=== PATIENT | female | born 1960 | race Hispanic/Latino ===

== ENCOUNTER 2019-06-05 11:36 | Inpatient (IN) | payer OTHER ==
[~2019-06-05 11:36] MED LIST: BOTOX ID ONE; NACL 0.9% 0 ML ONE; NACL P/F VIAL (10 ML) INFILTRATI ONE
[2019-06-05] MEDS ORDERED: NACL 0.9% 1000 ML 1,000 ML IV SCH (12:08)
[2019-06-05] MEDS ORDERED: ZOFRAN ONE (12:28)
[2019-06-05] MEDS ORDERED: DIPRIVAN 10 MG/ML IV ONE (12:28)
[2019-06-05] MEDS ORDERED: DECADRON ONE (12:28)
[2019-06-05] MEDS ORDERED: SUBLIMAZE ONE (12:33)
--- NOTE | 2019-06-05 12:57 | Anesthesia Consultation ---
Anesthesia Consult and Med Hx Date of service: 06/05/19 - Airway Anesthetic Teeth Evaluation: Good ROM Head & Neck: Adequate Mental/Hyoid Distance: Adequate Mallampati Class: Class II Intubation Access Assessment: Good - Pulmonary Exam CTA: Yes - Cardiac Exam Cardiac Exam: RRR - Pre-Operative Health Status ASA Pre-Surgery Classification: ASA3 Proposed Anesthetic Plan: General (COPD on home O2, DM , HTN , SMOKER for GA) - Pulmonary Hx Smoking: Yes (1 PPD X 40 YRS) Hx Asthma: Yes COPD: Yes (DAILY INHALERS) Hx Sleep Apnea: Yes (DX SLEEP APNEA , NO CPAP) - Cardiovascular System Hx Hypertension: Yes (NO MEDS) - Other Systems Hx Cancer: No
--- NOTE | 2019-06-05 12:58 | Anesthesia Day of Surgery ---
Anesthesia Day of Surgery - Day of Surgery Patient Examined: Yes Patient H&P Reviewed: Yes Patient is NPO: Yes
[2019-06-05] MEDS ORDERED: DUONEB *Not for PRN Use IH SCH (13:00)
[2019-06-05] MEDS ORDERED: DUONEB *Not for PRN Use IH ONE ×2 (13:05→16:51)
[2019-06-05] MEDS ORDERED: ANCEF/STERILE WATER 2 GM/20 ML IV NR (13:18)
[2019-06-05] MEDS ORDERED: NACL P/F VIAL (10 ML) 10 ML ONE (13:24)
[2019-06-05] MEDS ORDERED: OMNIPAQUE (300 MG) IR ONE ×2 (13:55→14:00)
[2019-06-05] MEDS ORDERED: NACL P/F VIAL (10 ML) INFILTRATI ONE (14:00)
[2019-06-05] MEDS ORDERED: BOTOX ID ONE (14:00)
[2019-06-05] MEDS ORDERED: BOTOX ONE (14:00)
--- NOTE | 2019-06-05 14:21 | Short Stay Summary ---
Short Stay Documentation Date of service: 06/05/19 - History H&P: obtained from office - Allergies and Medications Current Medications: Allergies codeine Allergy (Verified 04/12/19 15:40) Rash Home Medications Medication Instructions Recorded Confirmed Last Taken Type ALBUTEROL Inhaler (OR & NICU) 2 puff IH QID PRN 04/12/19 05/29/19 06/05/19 07:00 History [Proair] ALPRAZolam [Xanax TAB] 1 mg PO TID 04/12/19 05/29/19 06/05/19 07:00 History ARIPiprazole [Abilify TAB] 5 mg PO DAILY 04/12/19 05/29/19 06/05/19 07:00 History Duloxetine HCl [Cymbalta] 60 mg PO DAILY 04/12/19 05/29/19 06/05/19 07:00 History Fenofibrate Nanocrystallized 160 mg PO DAILY 04/12/19 05/29/19 06/05/19 07:00 History [Fenofibrate] Ibuprofen [Motrin] 600 mg PO Q8H PRN 04/12/19 06/05/19 05/29/19 History Omeprazole 20 mg PO DAILY 04/12/19 05/29/19 06/05/19 07:00 History Umeclidinium Brm/Vilanterol Tr 1 each IH DAILY 04/12/19 05/29/19 06/05/19 07:00 History [Anoro Ellipta 62.5-25 Mcg INH] Zolpidem [Ambien] 10 mg PO QHS 04/12/19 05/29/19 06/05/19 07:00 History metFORMIN [Glucophage] 500 mg PO BID 04/12/19 06/05/19 06/04/19 History Active Medications Albuterol/Ipratropium (Duoneb *Not For Prn Use*) 1 ampul IH ONCE CEDRIC Stop: 06/05/19 15:00 Last Admin: 06/05/19 13:05 Dose: 1 ampul Documented by: Cefazolin Sodium (Ancef/Sterile Water 2 Gm/20 Ml) 2 gm IV PREOP NR Stop: 06/05/19 23:59 Sodium Chloride (Nacl 0.9% 1000 Ml) 1,000 mls @ 100 mls/hr IV DIRECT CEDRIC Stop: 06/05/19 23:59 Last Admin: 06/05/19 12:40 Dose: 100 mls/hr Documented by: - Brief post op/procedure progress note Date of procedure: 06/05/19 Pre-op diagnosis: OAB/UUI Procedure: cysto, linda rpg, bladder botox 100 units Anesthesia: GETA Findings: no tumors, nl rpg, no erythema, no trabec; bladder nl; no palp ureth mass Surgeon: MARIA VICTORIA MANZANO Estimated blood loss: minimal Pathology: none Condition: stable - Hospital course Hospital course: or pacu home - Disposition Condition at discharge: Good Disposition: DC-01 TO HOME OR SELFCARE Short Stay Discharge Plan Activity: advance as tolerated Diet: advance as tolerated Follow up with: MARIA VICTORIA MANZANO MD [Staff Physician] - 7 Days
--- NOTE | 2019-06-05 14:48 | Fluoroscopy Report ---
Fluoroscopy retrograde urography HISTORY: Urinary incontinence FINDINGS: 40 seconds of fluoroscopy was provided by radiology during retrograde urography by the urol ogist. 7 fluoroscopic images of the abdomen are presented. The renal collecting systems are within no rmal limits bilaterally. No evidence for filling defect or abnormal dilatation. Bladder Botox injecti on was performed per the procedural notes. IMPRESSION: Unremarkable bilateral retrograde pyelograms. Signer Name: Ronak Maciel Jr, MD Signed: 06/05/2019 2:43 PM Workstation Name: [id number]
--- NOTE | 2019-06-05 16:13 | Post Anesthesia Evaluation ---
- Post Anesthesia Evaluation Patient Participated: Yes Airway Patent: Yes Stable Respiratory Function: Yes Nausea/Vomiting: No Temp > 96.8F: Yes Pain Manageable: Yes Adequeate Hydration: Yes Anesthesia Complications: No Block Receding Appropriately: Not Applicable Patient on Ventilator: No
[2019-06-05] MEDS ORDERED: SODIUM CHLORIDE FLUSH SYRINGE 10 ML IV PRN (17:43)
--- NOTE | 2019-06-05 17:46 | History and Physical Report ---
History of Present Illness Chief complaint: She cant breathe History of present illness: 58 YO Female with Obesity, COPD, Nicotine Dependence, DM, HTN admitted directly from PACU. Pt seen and evaluated in PACU and found to be lethargic as well as Acute Hypercapnic Respiratory Failure. Pt admitted to IMCU and initiated on NIPPV. No reports of fever, chills, CP, Palpitations, NVD, Trauma, BRBPR, Productive cough, or recent ill contacts. No further history obtainable due to patient mental status. No prior admission for review. All listed medication reconciled at time of admission. Past History Past Medical History: COPD, diabetes, hypertension, other (Obesity Hypoventilati on) Social history: smoking Family history: hypertension Medications and Allergies Allergies Allergy/AdvReac Type Severity Reaction Status Date / Time codeine Allergy Rash Verified 04/12/19 15:40 Home Medications Medication Instructions Recorded Confirmed Last Taken Type ALBUTEROL Inhaler (OR & NICU) 2 puff IH QID PRN 04/12/19 05/29/19 06/05/19 07:00 History [Proair] ALPRAZolam [Xanax TAB] 1 mg PO TID 04/12/19 05/29/19 06/05/19 07:00 History ARIPiprazole [Abilify TAB] 5 mg PO DAILY 04/12/19 05/29/19 06/05/19 07:00 History Duloxetine HCl [Cymbalta] 60 mg PO DAILY 04/12/19 05/29/19 06/05/19 07:00 History Fenofibrate Nanocrystallized 160 mg PO DAILY 04/12/19 05/29/19 06/05/19 07:00 History [Fenofibrate] Ibuprofen [Motrin] 600 mg PO Q8H PRN 04/12/19 06/05/19 05/29/19 History Omeprazole 20 mg PO DAILY 04/12/19 05/29/19 06/05/19 07:00 History Umeclidinium Brm/Vilanterol Tr 1 each IH DAILY 04/12/19 05/29/19 06/05/19 07:00 History [Anoro Ellipta 62.5-25 Mcg INH] Zolpidem [Ambien] 10 mg PO QHS 04/12/19 05/29/19 06/05/19 07:00 History metFORMIN [Glucophage] 500 mg PO BID 04/12/19 06/05/19 06/04/19 History Ketorolac [Toradol] 10 mg PO Q6H PRN #20 tablet 06/05/19 Unknown Rx cefUROXime [Ceftin] 500 mg PO Q12H #20 tablet 06/05/19 Unknown Rx Active Meds: Active Medications Cefazolin Sodium (Ancef/Sterile Water 2 Gm/20 Ml) 2 gm IV PREOP NR Stop: 06/05/19 23:59 Sodium Chloride (Nacl 0.9% 1000 Ml) 1,000 mls @ 100 mls/hr IV DIRECT CEDRIC Stop: 06/05/19 23:59 Last Admin: 06/05/19 12:40 Dose: 100 mls/hr Documented by: Miscellaneous Medication (Aripiprazole [Abilify Tab]) 5 mg PO DAILY CEDRIC Miscellaneous Medication (Duloxetine Hcl [Cymbalta]) 60 mg PO DAILY CEDRIC Miscellaneous Medication (Fenofibrate Nanocrystallized [Fenofibrate]) 160 mg PO DAILY CEDRIC Miscellaneous Medication (Omeprazole [Omeprazole]) 20 mg PO DAILY CEDRIC Miscellaneous Medication (Umeclidinium Brm/Vilanterol Tr [Anoro Ellipta 62.5-25 Mcg Inh]) 1 each IH DAILY CEDRIC Sodium Chloride (Sodium Chloride Flush Syringe 10 Ml) 10 ml IV BID CEDRIC Sodium Chloride (Sodium Chloride Flush Syringe 10 Ml) 10 ml IV PRN PRN PRN Reason: LINE FLUSH Review of Systems ROS unobtainable: due to mental status Gastrointestinal: no diarrhea, no change in bowel habits Genitourinary Female: no dysmenorrhea, no pelvic pain, no flank pain, no dysuria, no stress incontinence, no post void dribbling Rectal: no pain, no incontinence, no bleeding Musculoskeletal: no neck stiffness, no shooting arm pain, no low back pain Integumentary: no rash, no wounds, no jaundice Neurological: no paralysis, no weakness, no parathesias, no tingling, no migraines, no aphasia, no memory loss Psychiatric: no memory loss, no change in sleep habits, no sleep disturbances, no insomnia, no hypersomnia, no change in libido Endocrine: no cold intolerance, no polyphagia, no polydipsia, no nocturia, no deepening of the voice, no high blood sugars, no low blood sugars Hematologic/Lymphatic: no easy bruising, no easy bleeding, no lymphadenopathy Allergic/Immunologic: no urticaria, no allergic rhinitis, no persistent infections, no angioedema Exam - Constitutional Vitals: Temp Pulse Resp BP Pulse Ox 99.0 F 91 H 20 137/66 95 06/05/19 14:25 06/05/19 15:45 06/05/19 15:45 06/05/19 15:45 06/05/19 15:45 General appearance: Present: mild distress - EENT Eyes: Present: PERRL ENT: hearing intact, clear oral mucosa - Neck Neck: Present: supple, normal ROM - Respiratory Respiratory effort: normal Respiratory: bilateral: CTA - Cardiovascular Heart Sounds: Present: S1 & S2. Absent: rub, click - Extremities Extremities: pulses symmetrical, No edema Peripheral Pulses: within normal limits - Abdominal General gastrointestinal: Present: soft, non-tender, non-distended, normal bowel sounds Female genitourinary: Present: normal - Integumentary Integumentary: Present: clear, warm, dry - Musculoskeletal Musculoskeletal: gait normal, strength equal bilaterally - Psychiatric Psychiatric: appropriate mood/affect, intact judgment & insight - Neurologic Neurologic: CNII-XII intact, moves all extremities Results - Labs CBC & Chem 7: 06/06/19 05:07 06/06/19 05:07 Labs: Abnormal lab results 06/05/19 06/05/19 Range/Units 12:53 14:41 POC Glucose 112 H 118 H (70-105) Assessment and Plan - Patient Problems (1) Respiratory failure Current Visit: Yes Status: Acute Qualifiers: Chronicity: acute Respiratory failure complication: hypercapnia Qualified Code(s): J96.02 - Acute respiratory failure with hypercapnia Plan to address problem: Admit to IMCU, Initiated NIPPV, ABG, Repeat ABG after 1 hour on BIPAP, pulse oximetry, chest x ray. (2) Nicotine dependence Current Visit: Yes Status: Acute Qualifiers: Substance use status: in withdrawal Plan to address problem: supportive care, smoking cessation counseling, supportive care. (3) Obesity hypoventilation syndrome Current Visit: Yes Status: Acute Plan to address problem: NIPPV as clinically indicated, balanced diet, increased physical activity at discharge, pulse oximetry, incentive spirometry, early ambulation, pulmonary toilet (4) Diabetes Current Visit: Yes Status: Acute Plan to address problem: ADA diet, insulin, accu check, hypoglycemia protocol. (5) HTN (hypertension) Current Visit: Yes Status: Acute Qualifiers: Hypertension type: essential hypertension Qualified Code(s): I10 - Essential (primary) hypertension Plan to address problem: monitor bp q shift, continue medical management. (6) DVT prophylaxis Current Visit: Yes Status: Acute Plan to address problem: SCD to BLE while in bed
[2019-06-05 18:55] LABS: Basophils # (Auto) 0.1 K/mm3 (0.0-0.1); Basophils % (Auto) 0.7 % (0.0-1.8); Eosinophils # (Auto) 0.1 K/mm3 (0.0-0.4); Eosinophils % (Auto) 0.7 % (0.0-4.3); Lymphocytes # (Auto) 1.5 K/mm3 (1.2-5.4); Lymphocytes % (Auto) 13.7 % (13.4-35.0); Mean Corpuscular HGB Conc 31 % (30-34); Mean Corpuscular Volume 79 fl (79-97); Monocytes # (Auto) 0.8 K/mm3 (0.0-0.8); Monocytes % (Auto) 7.8 % (0.0-7.3); Platelet Count 267 K/mm3 (140-440); Red Blood Count 5.55 M/mm3 (3.65-5.03); Red Cell Distribution Width 17.3 % (13.2-15.2)
[2019-06-05 18:56] LABS: Hematocrit 43.6 % (30.3-42.9); Hemoglobin 13.5 gm/dl (10.1-14.3)
[2019-06-05 19:37] LABS: Alanine Aminotransferase 23 units/L (7-56); BUN/Creatinine Ratio 16; Blood Urea Nitrogen 13 mg/dL (7-17); Calcium 8.9 mg/dL (8.4-10.2); Hemolysis Index 8
--- NOTE | 2019-06-05 20:16 | XRay Report ---
CHEST 1 VIEW INDICATION: dypsnea. COMPARISON: None FINDINGS: Support devices: None. Heart: Mild cardiomegaly. Lungs/Pleura: No acute air space or interstitial disease. Additional findings: None. IMPRESSION: 1. No acute findings. Signer Name: Joseph Mccullough MD Signed: 06/05/2019 8:12 PM Workstation Name: [id number]
[2019-06-05] MEDS ORDERED: TRICOR PO SCH (22:00)
[2019-06-06] MEDS: SODIUM CHLORIDE FLUSH SYRINGE 10 ML IV SCH ×2 (00:45→09:22)
[2019-06-06 05:48] LABS: Basophils % (Auto) 0.2 % (0.0-1.8); Eosinophils % (Auto) 0.2 % (0.0-4.3); Hemoglobin 12.6 gm/dl (10.1-14.3); Lymphocytes # (Auto) 1.1 K/mm3 (1.2-5.4); Lymphocytes % (Auto) 12.9 % (13.4-35.0); Mean Corpuscular HGB Conc 32 % (30-34); Mean Corpuscular Volume 79 fl (79-97); Monocytes # (Auto) 0.5 K/mm3 (0.0-0.8); Monocytes % (Auto) 5.8 % (0.0-7.3); Platelet Count 240 K/mm3 (140-440); Red Blood Count 5.09 M/mm3 (3.65-5.03); Red Cell Distribution Width 17.3 % (13.2-15.2)
[2019-06-06 06:19] LABS: Alanine Aminotransferase 19 units/L (7-56); Albumin 3.6 g/dL (3.9-5); BUN/Creatinine Ratio 20; Blood Urea Nitrogen 12 mg/dL (7-17); Calcium 8.7 mg/dL (8.4-10.2); Hemolysis Index 1
[2019-06-06] MEDS ORDERED: PROTONIX PO SCH (10:00)
[2019-06-06] MEDS ORDERED: CYMBALTA PO SCH (10:00)
[2019-06-06] MEDS ORDERED: NON-FORMULARY (Duloxetine Hcl [Cymbalta] 60 MG) PO SCH (10:00)
[2019-06-06] MEDS ORDERED: FENOFIBRATE NANOCRYSTALLIZED 160 MG PO SCH (10:00)
[2019-06-06] MEDS ORDERED: NON-FORMULARY (Aripiprazole [Abilify Tab] 5 MG) PO SCH (10:00)
[2019-06-06] MEDS ORDERED: NON-FORMULARY (Umeclidinium Brm/Vilanterol Tr [Anoro Ellipta 62.5-25 Mcg Inh] 1 EACH) IH SCH (10:00)
[2019-06-06] MEDS ORDERED: NON-FORMULARY (Omeprazole [Omeprazole] 20 MG) PO SCH (10:00)
[2019-06-06] MEDS ORDERED: ABILIFY PO SCH (10:00)
--- NOTE | 2019-06-06 16:37 | Discharge Summary ---
Providers - Providers Date of Admission: 06/05/19 17:43 Date of discharge: 06/06/19 Attending physician: SHAUNA MARTEL Primary care physician: LILIA WEST Hospitalization Condition: Good Pertinent studies: cystoscopy Hospital course: pt presented directly from PACU for acute respiratory failure hypoxemia. Patient had obesity hypoventilation syndrome COPD obesity was placed on in on folow up wioth urologyNIPPV and defervesced well. Patient stable for discharge. foolow up with urology Disposition: DC-01 TO HOME OR SELFCARE - Discharge Diagnoses (1) Obesity hypoventilation syndrome Status: Acute (2) Respiratory failure Status: Acute Qualifiers: Chronicity: acute Respiratory failure complication: hypercapnia Qualified Code(s): J96.02 - Acute respiratory failure with hypercapnia Core Measure Documentation - Palliative Care Palliative Care/ Comfort Measures: Not Applicable - Core Measures Any of the following diagnoses?: none Exam - Constitutional Vitals: Temp Pulse Resp BP Pulse Ox 97.9 F 97 H 23 110/53 93 06/06/19 12:00 06/06/19 16:00 06/06/19 16:00 06/06/19 16:00 06/06/19 16:00 General appearance: Present: no acute distress, well-nourished - EENT Eyes: Present: PERRL ENT: hearing intact, clear oral mucosa - Neck Neck: Present: supple, normal ROM - Respiratory Respiratory effort: normal Respiratory: bilateral: CTA - Cardiovascular Rhythm: other (obese) Heart Sounds: Present: S1 & S2. Absent: rub, click - Extremities Extremities: pulses symmetrical, No edema Peripheral Pulses: within normal limits - Abdominal General gastrointestinal: Present: soft, non-tender, non-distended, normal bowel sounds Female genitourinary: Present: normal - Integumentary Integumentary: Present: clear, warm, dry - Musculoskeletal Musculoskeletal: gait normal, strength equal bilaterally - Psychiatric Psychiatric: appropriate mood/affect, intact judgment & insight - Neurologic Neurologic: CNII-XII intact, moves all extremities Plan Activity: fall precautions Weight Bearing Status: Weight Bear as Tolerated Diet: low fat, low cholesterol Follow up with: MARIA VICTORIA MANZANO MD [Staff Physician] - 7 Days Forms: Outpatient Surgery DC Inst. Prescriptions: cefUROXime [Ceftin] 500 mg PO Q12H #20 tablet Ketorolac [Toradol] 10 mg PO Q6H PRN #20 tablet PRN Reason: Pain
[2019-06-06 17:13] VITALS: BP 132/71
== END 2019-06-06 18:30 | disposition home or self-care (01) | DRG 189 ==
LOC: OR 11:36 → CC1 17:43 → IMCU 21:53
PROVIDERS: ADMIT Internal Medicine; ATTEND Internal Medicine
PROC: 3E0K8GC Introduction of Other Therapeutic Substance into Genitourinary Tract, Via Natural or Artificial Opening Endoscopic (ICD-10-PCS; principal; 2019-06-05)
PROC: BT14ZZZ Fluoroscopy of Kidneys, Ureters and Bladder (ICD-10-PCS; 2019-06-05)
PROC: 4A033R1 Measurement of Arterial Saturation, Peripheral, Percutaneous Approach (ICD-10-PCS; 2019-06-05)
PROC: 5A09357 Assistance with Respiratory Ventilation, Less than 24 Consecutive Hours, Continuous Positive Airway Pressure (ICD-10-PCS; 2019-06-05)
PROC: 5A09357 Assistance with Respiratory Ventilation, Less than 24 Consecutive Hours, Continuous Positive Airway Pressure (ICD-10-PCS; 2019-06-05)
DX: J96.02 Acute respiratory failure with hypercapnia (principal); E66.2 Morbid (severe) obesity with alveolar hypoventilation; F17.203 Nicotine dependence unspecified, with withdrawal; Z68.39 Body mass index [BMI] 39.0-39.9, adult; J96.01 Acute respiratory failure with hypoxia; I10 Essential (primary) hypertension; N39.498 Other specified urinary incontinence; Z88.6 Allergy status to analgesic agent; E11.9 Type 2 diabetes mellitus without complications; J44.9 Chronic obstructive pulmonary disease, unspecified; Z79.84 Long term (current) use of oral hypoglycemic drugs; Z82.49 Family history of ischemic heart disease and other diseases of the circulatory system; Z71.6 Tobacco abuse counseling
CPT/HCPCS: 36415; 36600; 71045; 74420; 80053; 82803; 82962; 85025; 94660; 94760; G0378; J0585; J0690; J1100; J2405; J2704; J3010; J7030; Q9967